=== PATIENT | female | born 1950 | race Caucasian/White ===

== ENCOUNTER 2020-12-14 12:24 | Outpatient (CLI) | payer MEDICARE | END 2020-12-14 12:25 | disposition home or self-care (01) | LOC: CSHWCC 12:24 | PROVIDERS: ATTEND Nurse Practitioner Family | DX: S91.205D Unspecified open wound of left lesser toe(s) with damage to nail, subsequent encounter (principal); I87.312 Chronic venous hypertension (idiopathic) with ulcer of left lower extremity; L97.829 Non-pressure chronic ulcer of other part of left lower leg with unspecified severity; R60.0 Localized edema; G89.4 Chronic pain syndrome; I10 Essential (primary) hypertension; I87.2 Venous insufficiency (chronic) (peripheral); L60.0 Ingrowing nail; L60.1 Onycholysis; M13.80 Other specified arthritis, unspecified site | CPT/HCPCS: 29581; 97139; G0463; 99213 ==

== ENCOUNTER 2021-01-11 09:56 | Outpatient (CLI) | payer MEDICARE | END 2021-01-11 09:57 | disposition home or self-care (01) | LOC: CSHWCC 09:56 | PROVIDERS: ATTEND Nurse Practitioner Family | DX: I87.311 Chronic venous hypertension (idiopathic) with ulcer of right lower extremity (principal); G89.4 Chronic pain syndrome; I10 Essential (primary) hypertension; I87.2 Venous insufficiency (chronic) (peripheral); L97.819 Non-pressure chronic ulcer of other part of right lower leg with unspecified severity; I87.312 Chronic venous hypertension (idiopathic) with ulcer of left lower extremity; L97.829 Non-pressure chronic ulcer of other part of left lower leg with unspecified severity; M13.80 Other specified arthritis, unspecified site; R60.0 Localized edema | CPT/HCPCS: 97139; G0463; 99213 ==

== ENCOUNTER 2021-04-20 11:49 | Outpatient (CLI) | payer MEDICARE | END 2021-04-20 11:50 | disposition home or self-care (01) | LOC: CSHMAMMO 11:49 | PROVIDERS: ATTEND Family Medicine | DX: Z12.31 Encounter for screening mammogram for malignant neoplasm of breast (principal); Z13.820 Encounter for screening for osteoporosis; M85.851 Other specified disorders of bone density and structure, right thigh; Z96.642 Presence of left artificial hip joint | CPT/HCPCS: 77063; 77067; 77080 ==

== ENCOUNTER 2022-12-27 11:02 | Outpatient (CLI) | payer MEDICARE | END 2022-12-27 11:03 | disposition home or self-care (01) | LOC: CSHMAMMO 11:02 | PROVIDERS: ATTEND Student in an Organized Health Care Education/Training Program | DX: Z12.31 Encounter for screening mammogram for malignant neoplasm of breast (principal); Z13.820 Encounter for screening for osteoporosis; M85.851 Other specified disorders of bone density and structure, right thigh; M85.852 Other specified disorders of bone density and structure, left thigh; Z78.0 Asymptomatic menopausal state | CPT/HCPCS: 77063; 77067; 77080 ==

== ENCOUNTER 2023-01-02 09:34 | Outpatient (CLI) | payer MEDICARE | END 2023-01-02 09:35 | disposition home or self-care (01) | LOC: CSHULT 09:34 | PROVIDERS: ATTEND Student in an Organized Health Care Education/Training Program | DX: I87.2 Venous insufficiency (chronic) (peripheral) (principal); I73.9 Peripheral vascular disease, unspecified | CPT/HCPCS: 93923; 93970 ==

== ENCOUNTER 2023-02-04 13:56 | Outpatient (CLI) | payer MEDICARE | END 2023-02-04 13:57 | disposition home or self-care (01) | LOC: CSHWCC 13:56 | PROVIDERS: ATTEND Nurse Practitioner Family | DX: L89.612 Pressure ulcer of right heel, stage 2 (principal); L89.891 Pressure ulcer of other site, stage 1; R60.0 Localized edema | CPT/HCPCS: 97139; G0463; 99213 ==

== ENCOUNTER 2023-03-04 10:31 | Outpatient (CLI) | payer MEDICARE | END 2023-03-04 10:32 | disposition home or self-care (01) | LOC: CSHWCC 10:31 | PROVIDERS: ATTEND Nurse Practitioner Family | DX: R60.0 Localized edema (principal); L89.612 Pressure ulcer of right heel, stage 2 | CPT/HCPCS: 97597 ==

== ENCOUNTER 2023-04-15 11:08 | Outpatient (CLI) | payer MEDICARE | END 2023-04-15 11:09 | disposition home or self-care (01) | LOC: CSHWCC 11:08 | PROVIDERS: ATTEND Nurse Practitioner Family | DX: R60.0 Localized edema (principal); L89.612 Pressure ulcer of right heel, stage 2 | CPT/HCPCS: 97139; 97597; G0463; 99213 ==

== ENCOUNTER 2024-03-10 14:59 | Outpatient (CLI) | payer MEDICARE | END 2024-03-10 15:00 | disposition home or self-care (01) | LOC: CSHRAD 14:59 | PROVIDERS: ATTEND Student in an Organized Health Care Education/Training Program | DX: R05.3 Chronic cough (principal) | CPT/HCPCS: 71046 ==

== ENCOUNTER 2025-06-24 09:16 | Outpatient (CLI) | payer MEDICARE ==
[2025-06-24 10:26] LABS: Estimated GFR - POC 58.0
== END 2025-06-24 09:17 | disposition home or self-care (01) ==
LOC: CSHMRI 09:16
PROVIDERS: ATTEND Orthopaedic Surgery Hand Surgery
DX: G56.32 Lesion of radial nerve, left upper limb (principal); M62.532 Muscle wasting and atrophy, not elsewhere classified, left forearm
CPT/HCPCS: 36415; 82565